=== PATIENT | female | born 1995 | race African-American/Black ===

== ENCOUNTER 2019-12-11 17:30 | Outpatient (CLI) | payer BC ==
[2019-12-11 18:52] LABS: Amorphous Sediment,Urine Rare /hpf; Appearance,Urine Clear (Clear); Bilirubin,Urine Negative (Negative); Blood,Urine Large (Negative); Color,Urine Light Yellow; Glucose,Urine (UA) Negative (Negative); Ketones,Urine Negative (Negative); Leukocyte Esterase,Urine Trace (Negative); Mucus,Urine Rare /hpf; Nitrite,Urine Negative (Negative); Protein,Urine Negative (Negative); RBC,Urine <1 /hpf (0-5); Specific Gravity,Urine 1.008 (1.001-1.035); Squamous Epithelial Cell,Urine 3 /hpf (0-4); Urobilinogen,Urine <2.0 mg/dL (<2.0); WBC,Urine 6 /hpf (0-5)
[2019-12-11 19:29] VITALS: BP 123/71; PULSE 96; RESP 16; TEMP 97.3
--- NOTE | 2019-12-12 07:00 | P.MSEPDOC ---
Presenting Problems - Arrival Data Date of Arrival on Unit: 12/11/19 Time of Arrival on Unit: 17:30 Mode of Transport: Ambulatory - Complaint OB-Reason for Admission/Chief Complaint: Pain Comment: pain rt flank for last week. bleeding today when going to bathroom. came. right up here. care . in [facility]. dr franco. was up here camping. abd. soft none tender to touch. no noted visiable bleeding. Medical History - Information : 1 Para: 0 Term: 0 : 0 Abortions: Spontaneous or Elective: 0 Number of Living Children: 0 - Gestational Age Gestational Age by NIDHI (wks/days): 23 Weeks and 4 Days Review of Systems - Review of Systems Constitutional: No problems Breast: No problems ENT: No problems Cardiovascular: No problems Respiratory: No problems Gastrointestinal: No problems Genitourinary: No problems Musculoskeletal: No problems Neurological: No problems Skin: No problems Vital Signs - Temperature Temperature: 97.3 F Temperature Source: Temporal Artery Scan - Pulse Right Brachial Pulse Rate: 96 Pulse Assessment Method: Automatic Cuff - Respirations Respiratory Rate: 16 Oxygen Delivery Method: Room Air - Blood Pressure Right Arm Blood Pressure: 123/71 Blood Pressure Mean: 88 Blood Pressure Source: Automatic Cuff Medical Screen Scoring (Pre) - Cervical Exam Dilation: Exam Deferred Effacement: Exam Deferred - Uterine Contractions Frequency: N/A Duration: N/A Intensity: N/A - Maternal Vital Signs Maternal Temperature: N/A - Assessment - Baby A Baseline FHR: 145 Heart Rate - NICHD Category: Category I (Normal) = 0 - Total Score - Baby A Total Score - Baby A: 0 - Total Score - Baby B Total Score - Baby B: 0 - Total Score - Baby C Total Score - Baby C: 0 - Level of Risk - Baby A Level of Risk - Baby A: Low (0-5) - Level of Risk - Baby B Level of Risk - Baby B: Low (0-5) - Level of Risk - Baby C Level of Risk - Baby C: Low (0-5) Physician Notification (Pre) - Physician Notified Physician Notified Date: 12/11/19 Physician Notified Time: 19:10 New Order Received: Yes - Notification Comment Comment: D/c home, orders for regular tylenol and orally hydrate. Call her doctor for follow up appt. Disposition - Disposition OB Disposition: Discharge to home, Written follow up instructions reviewed Discharge Date: 12/11/19 Discharge Time: 19:22 I agree with the RN Medical Screening Exam: Yes Risk & Benefit of care provided described in d/c instruction: Yes Diagnosis: CALCULUS OF KIDNEY (This patient presented to labor and delivery with complaints of flank pain and a scant amount of blood after wiping. Patient's had care elsewhere and was having this similar symptomatology this week with her primary roll icer machine and was diagnosed with renal calculus. Repeat urinalysis confirms hematuria consistent with a kidney stone. Patient was recommended to increase oral hydration and to take Tylenol as needed. She was instructed to follow up with her primary roll icer machine as soon as possible. Given directions to return here if she wished for any further concerns.)
== END 2019-12-11 19:25 | disposition home or self-care (01) ==
LOC: FBPOP 17:30
PROVIDERS: ATTEND Obstetrics & Gynecology
DX: O26.832 Pregnancy related renal disease, second trimester (principal); N20.0 Calculus of kidney; Z3A.23 23 weeks gestation of pregnancy
CPT/HCPCS: 81001; 99213